=== PATIENT | female | born 1965 | race Caucasian/White ===

== ENCOUNTER → 2020-04-15 14:56 | Outpatient (CLI) | payer OTHER, SELFPAY ==
--- NOTE | ~2020-04-15 | XR_ITS ---
EXAMINATION: XR foot LT min 3V DATE: 04/15/2020 15:11 INDICATION: Metatarsal pain at the left foot post blunt trauma. TECHNIQUE: Dorsoplantar, two oblique and lateral views of the left foot were obtained. COMPARISON: None. FINDINGS: Alignment is normal. No fracture. Mild osteoarthritis at the first metatarsophalangeal and several in terphalangeal joints. Soft tissues are unremarkable. IMPRESSION: 1. 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 No acute osseous abnormality. Reviewed, dictated and finalized at location A. 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 No acute osseous abnormal ity.
== END ==
PROVIDERS: PCP Nurse Practitioner Family; Visit Provider Nurse Practitioner Family
DX: M19.072 Primary osteoarthritis, left ankle and foot (principal)
CPT/HCPCS: 73630

== ENCOUNTER 2021-11-17 12:49 | Emergency (ER) | payer OTHER, SELFPAY ==
--- NOTE | ~2021-11-17 | XR_ITS ---
XR knee LT min 4V DATE: 11/17/2021 13:17 INDICATION: Fall forward onto knees. Bilateral anterior pain and swelling TECHNIQUE: Belmond, crosstable lateral, AP and bilateral oblique views of left knee COMPARISON: None FINDINGS: No fracture or dislocation or joint effusion. No periosteal reaction or bone destruction. J oint spaces are preserved. No radiopaque intra-articular loose body or chondrocalcinosis. IMPRESSION: Negative Reviewed, dictated and finalized at location A. IMPRESSION: Negative
--- NOTE | ~2021-11-17 | XR_ITS ---
XR knee RT min 4V DATE: 11/17/2021 13:17 INDICATION: Fall onto anterior knees. Anterior pain and swelling. TECHNIQUE: Crosstable lateral, sunrise COMPARISON: None FINDINGS: There is a minimally medially displaced fracture at the anteromedial aspect of the patella. There is mild lipoma hemarthrosis. No other fracture or dislocation, periosteal reaction or bone destruction. No radiopaque intra-articu lar loose body or chondrocalcinosis. IMPRESSION: Minimally displaced anteromedial fracture of the patella with associated lipohemarthrosis Reviewed, dictated and finalized at location A. IMPRESSION: Minimally displaced anteromedial fracture of the patella with assoc iated lipohemarthrosis
[2021-11-17 12:54] VITALS: BP 133/104; PULSE 88; RESP 20; TEMP 37.2; O2SAT 97
--- NOTE | 2021-11-17 12:54 | ED.LOWEXIN ---
HPI - Extremity Injury (Lower) General Chief Complaint: Extremity Injury, Upper Stated Complaint: Knee injury Time Seen by Provider: 11/17/21 12:54 Source: patient and RN notes reviewed History of Present Illness HPI Narrative: Patient is a 56-year-old female who presents the urgent care with complaints of bilateral knee pain and swelling to the right knee. Patient states that it was dark out and she fell over one of her plantars and onto the concrete on Monday evening. Patient states that she has been elevating and using Tylenol for pain. Patient states that she cleaned to the left knee wound out with alcohol and has been using Neosporin. Patient mentions several times that she does not have any pain medication or ice at her home . Patient has been ambulating and rode her bike to the facility without difficulty. No other acute complaints or injuries from the fall. No acute distress noted. Patient aware of the plan of care. Some parts of this dictation were generated by voice recognition software and may contain typographical and/or grammatical inaccuracies. Related Data Allergies Allergy/AdvReac Type Severity Reaction Status Date / Time No Known Allergies Allergy Unverified 11/17/21 13:00 Review of Systems Review of Systems: CONSTITUTIONAL: Denies fever, chills, or sweats. EYES: Denies visual changes, redness, or discharge. ENT: Denies rhinorrhea, congestion, sore throat, or otalgia. CARDIOVASCULAR: Denies chest pain, palpitations, or edema. RESPIRATORY: Denies cough or dyspnea. GASTROINTESTINAL: Denies abdominal pain, nausea, vomiting, or diarrhea. GENITOURINARY: Denies dysuria or hematuria. SKIN: Reports of an abrasion to the left knee MUSCULOSKELETAL: Reports of pain to bilateral knees with a slight swelling to the right. NEUROLOGIC: Denies headache, numbness, or weakness. All other systems reviewed are negative, except as documented in HPI. PMFSH Comments At the time of my signature, I reviewed and agree with the nursing past medical, surgical, social, and family history. There is no relevant family history pertinent to the patient complaint. Exam Narrative: GENERAL: This is a well-nourished, well-developed patient, in no apparent distress. HEAD: normocephalic, atraumatic. EYES: PERRL. Sclera clear/white. Vision is grossly intact. EARS: External ears normal NOSE: External nose normal with no obvious nasal discharge, nares without redness, no rhinorrhea. THROAT: Mucous membranes moist NECK: Neck supple CARDIOVASCULAR: Regular rate and rhythm without murmurs, gallops, or rubs. RESPIRATORY: Clear to auscultation. Breath sounds equal bilaterally. No wheezes, rales, or rhonchi. SKIN: 2 x 2cm healing skin abrasion to the anterior left knee NEURO: awake, alert, and oriented to person, place and time. There were no obvious focal neurologic abnormalities. EXTREMITIES: Mild swelling to the right knee with negative anterior drawer test. No tenderness to bilateral patella. Range of motion to bilateral lower extremities within normal limits. Positive strong bilateral pedal pulse capillary refill less than 2 seconds. Course Course Level of Care: Express Care Visit Vital Signs Vital signs: Vital Signs Temperature 99 F 11/17/21 12:54 Pulse Rate 88 11/17/21 12:54 Respiratory Rate 20 11/17/21 12:54 Blood Pressure 133/104 H 11/17/21 12:54 Pulse Oximetry 97 11/17/21 12:54 Oxygen Delivery Room Air 11/17/21 12:54 Temperature 99 F 11/17/21 12:54 Pulse Rate 88 11/17/21 12:54 Respiratory Rate 20 11/17/21 12:54 Blood Pressure 133/104 H 11/17/21 12:54 Pulse Oximetry 97 11/17/21 12:54 Oxygen Delivery Room Air 11/17/21 12:54 Reviewed-patient is informed that they may have pre-hypertension or hypertension based on a blood pressure reading in the department. I recommend the patient call the primary care provider listed on their discharge instructions or a physician of their choice this week
--- NOTE | 2021-11-17 13:17 | PC.NURSE ---
PT DECLINED ICE FOR COMFORT AND WHEELCHAIR TO RADIOLOGY
== END 2021-11-17 13:52 | disposition home or self-care (01) ==
PROVIDERS: Emergency Provider Nurse Practitioner Family
DX: S82.091A Other fracture of right patella, initial encounter for closed fracture (principal); M25.562 Pain in left knee; W01.0XXA Fall on same level from slipping, tripping and stumbling without subsequent striking against object, initial encounter
CPT/HCPCS: 73564; 99204; G0463; L1830

== ENCOUNTER 2021-11-22 14:48 | Outpatient (CLI) | payer OTHER, SELFPAY ==
--- NOTE | ~2021-11-22 | XR_ITS ---
XR knee RT 3V 11/22/2021 15:01 Indication: Right knee pain Procedure: 3 views right knee Comparison: 11/17/2021 Findings: Stable appearance to minimally displaced fracture anterior medial aspect of the patella. Sm all joint effusion. No new fracture. No significant joint space narrowing. Impression: 1: Stable alignment of minimally displaced fracture anterior medial aspect of the patella. Reviewed, dictated and finalized at location A. Impression: 1: Stable alignment of minimally displaced fracture anterior medial aspect of t he patella.
== END 2021-11-22 14:49 | disposition home or self-care (01) ==
PROVIDERS: Visit Provider Orthopaedic Surgery
DX: M25.561 Pain in right knee (principal)
CPT/HCPCS: 73562

== ENCOUNTER 2022-05-29 14:58 | Emergency (ER) | payer OTHER, SELFPAY ==
[2022-05-29 15:08] VITALS: BP 151/78; PULSE 63; RESP 16; TEMP 36.6; O2SAT 98
--- NOTE | 2022-05-29 17:27 | ED.URI ---
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 patient reports that she had to call off work for 3 days and she needs note to return to work. Patient reports that she has not had COVID immunizations or flu shot. Patient reports that took Theraflu and also some cough drops for her symptoms. Patient denies any recent fevers, sore throat or any acute cough or dyspnea. MD elicited complaint: cough, sore throat, rhinorrhea and nasal congestion Onset (ago): day(s) (5-6 days ago) Pain scale (0-10): 0 Treatments prior to arrival: other (theraflu and cough drops) Related Data Allergies Allergy/AdvReac Type Severity Reaction Status Date / Time poison debi extract Allergy Unknown Rash Verified 12/08/21 16:12 Review of Systems Review of Systems: CONSTITUTIONAL: Denies malaise, chills, sweats, or fever. EYES: Denies visual changes, redness, or discharge. ENT: Reports rhinorrhea, congestion, no sinus pain, otalgia and sore throat. CARDIOVASCULAR: Denies chest pain, palpitations, or edema. RESPIRATORY: Reports dry cough.? Denies dyspnea. GASTROINTESTINAL: Denies abdominal pain, nausea, vomiting, diarrhea SKIN: Denies rash or itching. MUSCULOSKELETAL: Denies myalgia. NEUROLOGIC: Denies headache. All systems reviewed & are unremarkable except as noted in HPI and below PMFSH Past Medical History Medical History (Updated 05/30/22 @ 11:55 by Sharon Rojas NP) Post-menopausal Surgical History Surgical History (Updated 05/30/22 @ 11:55 by Sharon Rojas NP) History of breast augmentation Social History Social History (Updated 12/08/21 @ 16:14 by Rochelle Richmond) Smoking status: Current every day smoker Tobacco type: cigarettes Additional smoking assessment comments: 2 packs per week. 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 There is no relevant family history pertinent to the presenting complaint Exam Narrative: GENERAL: Well-appearing, well-nourished, and in no acute distress. HEAD: Normocephalic EYES: PERRLA, conjunctivae clear ENT: Nares clear, turbinates edematous and erythematous, clear discharge. Mucous membranes moist. TM pearly cheatham with dull light reflex bilaterally; no tragal tenderness. Oropharynx erythematous without lesions. Tonsils not enlarged and without exudate, no drooling, no hoarseness, no trismus, uvula midline. NECK: Supple. No lymphadenopathy CHEST: Clear to auscultation, breath sounds equal. No wheezing, rhonchi, rales, or stridor. No respiratory distress, speaks in full sentences.occasional dry cough SAO2 98% on room air HEART: Regular rate and rhythm. No murmur heard. SKIN: Warm, dry, no rash. NEURO: Alert and oriented x3. PSYCH: Normal mood and affect Course Course Emergency Course: Patient is aware of diagnosis, understands and agrees to treatment plan.? Anticipatory guidance given.? Patient agrees to follow-up as directed and is aware of reasons to seek care at the emergency department. Portions of this record may have been created with voice recognition software Level of Care: Express Care Visit Vital Signs Vital signs: Vital Signs
== END 2022-05-29 17:47 | disposition home or self-care (01) ==
PROVIDERS: Emergency Provider Registered Nurse; PCP Emergency Medicine
DX: J06.9 Acute upper respiratory infection, unspecified (principal); F17.210 Nicotine dependence, cigarettes, uncomplicated; F12.90 Cannabis use, unspecified, uncomplicated
CPT/HCPCS: 99213; G0463

== ENCOUNTER 2024-08-22 16:43 | Emergency (ER) | payer OTHER, SELFPAY ==
[2024-08-22 16:54] VITALS: BP 130/93; PULSE 92; RESP 16; TEMP 36.7; O2SAT 98
--- NOTE | 2024-08-22 17:17 | ED_ITS ---
HPI - Skin/Abscess/Foreign Bdy General Chief complaint: Skin/Abscess/Foreign Body Stated complaint: POISON MARLENI Time Seen by Provider: 08/22/24 17:08 Source: patient, RN notes reviewed and old records reviewed Mode of arrival: ambulatory Limitations: no limitations History of Present Illness HPI narrative: 59 year old female who presents to [facility] care with complaints of rash to her forearms, and hands and small area on her left upper leg after working in her yard 4 days ago. Patient states that she was pulling weeds in her garden and thinks she must of gotten ahold of some poison marleni. Patient reports that rash is itchy and soms vesicle areas noted on arms. Patient reports that she has applied hydrocortisone cream to her rash but with no improvement. MD complaint: rash Onset (ago): day(s) (4) Location: LUE, RUE, L hand, R hand and LLE (left upper leg small area) Severity: moderate Quality: pruritic Treatments prior to arrival: other (hydrocortisone ointment) Related Data Allergies Allergy/AdvReac Type Severity Reaction Status Date / Time poison marleni extract Allergy Unknown Rash Verified 08/22/24 17:00 Review of Systems Review of Systems: CONSTITUTIONAL: Denies fever, chills, or sweats. CARDIOVASCULAR: Denies chest pain, palpitations, or edema. RESPIRATORY: Denies cough or dyspnea. SKIN: Reports red itchy rash to bilateral forearms and hand and to left upper leg which is itchy, some vesicles noted on arms MUSCULOSKELETAL: Denies joint pain or myalgia. NEUROLOGIC: Denies headache, numbness, or weakness. All systems reviewed & are unremarkable except as noted in HPI and below [facility] Past Medical History Medical History (Updated 08/23/24 @ 15:03 by Sharon Rojas NP) Fracture of right patella Post-menopausal Surgical History Surgical History History of breast augmentation Social History Social History Smoking status: Current every day smoker Tobacco type: cigarettes Additional smoking assessment comments: 2 packs per week. 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 There is no relevant family history pertinent to the presenting complaint Exam Narrative: GENERAL: Well-appearing, well-nourished, and in no acute distress. HEAD: Normocephalic, atraumatic. EYES: PERRLA, conjunctivae clear, and EOMI. ENT: Mucous membranes moist. Oropharynx without edema, erythema or lesions. NECK: Supple. No lymphadenopathy CHEST: Clear to auscultation. No respiratory distress. SAO2 98% on room air HEART: Regular rate and rhythm. SKIN: Warm, dry.? Patches of erythema and edema with small vesicles to forearm area of rash, rash note to hands and to left upper leg small area which is itchy NEURO:? Alert and oriented x3. PSYCH: Normal mood and affect Course Course Emergency Course: Patient is aware of diagnosis, understands and agrees to treatment plan.? Anticipatory guidance given.? Patient agrees to follow-up as directed and is aware of reasons to seek care at the emergency department. Portions of this record may have been created with voice recognition software Level of Care: Express Care Visit Vital Signs Vital signs: Vital Signs Temperature 36.7 C 08/22/24 16:54 Pulse Rate 92 08/22/24 16:54 Respiratory Rate 16 08/22/24 16:54 Blood Pressure 130/93 H 08/22/24 16:54 Pulse Oximetry 98 08/22/24 16:54 Oxygen Delivery Room Air 08/22/24 16:54 Temperature 36.7 C 08/22/24 16:54 Pulse Rate 92 08/22/24 16:54 Respiratory Rate 16 08/22/24 16:54 Blood Pressure 130/93 H 08/22/24 16:54 Pulse Oximetry 98 08/22/24 16:54 Oxygen Delivery Room Air 08/22/24 16:54 Reviewed MDM - Skin/Abscess/Foreign Bdy MDM Narrative Medical decision making narrative: Does not appear at this time to be erythema multiforme, bullous, SJS, TEN; no evidence at this time to suggest RMSF, endocarditis or Lyme disease; patient looks well, nontoxic and is tolerating oral intake; no neurologic signs or symptoms; no headache, photophobia or neck pain; afebrile; appropriate for initial outpatient treatment; discussed the importance of follow-up, patient agrees; question, viral exanthema, contact dermatitis, allergic dermatitis, eczema, urticaria, [ xx ]. No soft palate or uvula edema, no tongue, lip edema or other mucosal involvement, no respiratory compromise, no stridor, no wheezing, no wheezing, no history of syncope, no hypotension, no nausea, vomiting, or diarrhea.? Instructed patient to go to nearest ER immediately for any worsening symptoms including but not limited to: fever, spreading rash, pain, sore throat, headache, dizziness, chest pain, trouble breathing, or any symptoms concerning to the patient. Differential Diagnosis Differential diagnosis: Likely cellulitis, eczema, contact dermatitis and other (poison marleni dermatitis) Medical Records Attestation: I reviewed the patient's medical records. Critical Care Time Critical Care Time Critical Care Time: No Discharge Plan Discharge Clinical Impression: Poison marleni dermatitis Patient Disposition: Home Condition: Stable Instructions: Antibiotic Form, Contact Dermatitis (ED) Additional Instructions: Cleanse rash with liquid Dial soap twice daily watch for increasing infection--redness, swelling, drainage Tylenol or ibuprofen for any fever pain Zyrtec daily for the next 10 days Pepcid 20 mg daily for the next 10 days follow up with PCP in 7-10 days for a wound check recheck if develop fever, chills, increasing symptom Go to the ER if your symptoms become worse of if ANY new symptoms develop Prednisone taper take as prescribed Triamcinolone ointment apply to rash on arms twice a daily never apply this ointment to the face If your symptoms persist, change or worsen significantly before you can contact your personal physician then please, without delay, go to the emergency department for further evaluation. Follow-up with PCP in 7-10 days or sooner if needed Follow up with PCP soon in regards to your blood pressure which is elevated above threshold for referral. Blood pressure above 120/80 may indicate pre- hypertension 130/93 Patient Language: Greek Prescriptions: New prednisone 10 mg tablet 10 mg PO DIRECTED Qty: 21 0RF Rx Instructions: see taper instructions 6 tabs day 1, 5 tabs day 2, 4 tabs day 3, 3 tabs day 4, 2 tabs day 5, 1 tab day 5 cetirizine [Zyrtec] 10 mg tablet 10 mg PO DAILY Qty: 14 0RF famotidine [Pepcid] 20 mg tablet 20 mg PO DAILY Qty: 14 0RF triamcinolone acetonide 0.1 % ointment 1 applic topical BID Qty: 80 0RF No Action fexofenadine [Danielle Allergy] 180 mg tablet 180 mg PO DAILY Qty: 20 0RF Follow-up/Referrals: UNKNOWN,DOCTOR [Primary Care Provider] - Time of Disposition: 17:30 Quality Winn Coma Scale Eyes: Open Verbal: Oriented and Alert Motor: Follows Commands Winn Coma Total Score: 15
== END 2024-08-22 17:36 | disposition home or self-care (01) ==
PROVIDERS: Emergency Provider Registered Nurse
DX: L23.7 Allergic contact dermatitis due to plants, except food (principal); F17.210 Nicotine dependence, cigarettes, uncomplicated; F12.90 Cannabis use, unspecified, uncomplicated
CPT/HCPCS: 99213; G0463